=== PATIENT | male | born 1995 | race Caucasian/White ===

== ENCOUNTER 2018-05-31 22:42 | Emergency (ER) | payer OTHER ==
[~2018-05-31] VITALS: Ht 172.7 cm; Wt 70.7 kg
[~2018-05-31 22:42] MED LIST: NOHOMEMEDS
[2018-06-01] MEDS ORDERED: MEDROL DOSEPAK4 MG PO (01:57)
[2018-06-01] MEDS ORDERED: CLEOCIN150 MG PO (01:57)
[2018-06-01 02:27] VITALS: BP 151/92
== END 2018-06-01 02:28 | disposition home or self-care (01) ==
LOC: EME 22:42
DX: J02.9 Acute pharyngitis, unspecified (principal); R68.83 Chills (without fever)
CPT/HCPCS: 87651 90; 99281; 99284; J7512